=== PATIENT | male | born 1955 | race Caucasian/White ===

== ENCOUNTER 2021-03-23 13:22 | Inpatient (IN) | payer OTHER ==
[2021-03-23] MEDS ORDERED: hydrOXYzine PAMOATE 25 MG CAPSULE (FP) PO PRN (16:52)
[2021-03-23] MEDS ORDERED: MENTHOL/PHENOL 1 EACH UD MM PRN (16:52)
[2021-03-23] MEDS ORDERED: MAGNESIUM CITRATE 300 ML BOTTLE PO PRN (16:52)
[2021-03-23] MEDS ORDERED: IBUPROFEN 400 MG TABLET (FP) PO PRN (16:52)
[2021-03-23] MEDS ORDERED: METHADONE HCL 10 MG TABLET (FOR DETOX USE ONLY) PO ONE (16:52)
[2021-03-23] MEDS ORDERED: ACETAMINOPHEN 325 MG TABLET (FP) PO PRN ×2 (16:52)
[2021-03-23] MEDS ORDERED: ONDANSETRON *ODT* 4 MG TABLET SL PRN (16:52)
[2021-03-23] MEDS ORDERED: BISMUTH SUBSALICYLATE 524 MG/30 ML UD PO PRN (16:52)
[2021-03-23] MEDS ORDERED: MAGNESIUM HYDROX 2400MG/30ML ORAL SUSPENSION 30 ML CUP PO PRN (16:52)
[2021-03-23] MEDS ORDERED: cloNIDine HCL 0.1 MG TABLET PO PRN (16:52)
[2021-03-23] MEDS ORDERED: MAG HYDROX/AL HYDROX/SIMETH 30 ML UNIT-DOSE CUP PO PRN (16:52)
[2021-03-23] MEDS ORDERED: MELATONIN 5 MG TABLETS PO SCH (22:00)
[2021-03-23] MEDS: diazePAM 5 MG TABLET PO SCH (22:04)
[2021-03-23] MEDS: THIAMINE HCL 100 MG TABLET (FP) PO SCH (22:04)
[2021-03-24] MEDS: diazePAM 5 MG TABLET PO SCH ×4 (05:31→22:10)
[2021-03-24] MEDS ORDERED: METHADONE (DETOX) 20 MG, METHADONE (DETOX) 5 MG PO ONE (10:00)
[2021-03-24] MEDS ORDERED: METHADONE HCL 10 MG TABLET (FOR DETOX USE ONLY) ONE (10:01)
[2021-03-24] MEDS ORDERED: METHADONE HCL 5 MG TABLET (FOR DETOX USE ONLY) ONE (10:02)
[2021-03-24] MEDS: METHOCARBAMOL 500 MG TABLET PO PRN (10:10)
[2021-03-24] MEDS: NICOTINE 14 MG/24 HOURS TOPICAL PATCH TD SCH (10:10)
[2021-03-24] MEDS: PRENATAL VITAMINS W/ FOLIC ACID TABLET (FP) PO SCH (10:10)
[2021-03-24] MEDS ORDERED: MELATONIN 5 MG TABLETS PO PRN (10:46)
[2021-03-24] MEDS: PRAZOSIN HCL 1 MG CAPSULE PO SCH (22:10)
[2021-03-24] MEDS: THIAMINE HCL 100 MG TABLET (FP) PO SCH (22:11)
[2021-03-25] MEDS: diazePAM 5 MG TABLET PO PRN ×2 (01:42→10:31)
[2021-03-25] MEDS: diazePAM 5 MG TABLET PO SCH ×3 (06:28→23:23)
[2021-03-25] MEDS ORDERED: METHADONE HCL 10 MG TABLET (FOR DETOX USE ONLY) PO ONE (10:00)
[2021-03-25] MEDS: METHOCARBAMOL 500 MG TABLET PO PRN (10:29)
[2021-03-25] MEDS: NICOTINE 14 MG/24 HOURS TOPICAL PATCH TD SCH (10:30)
[2021-03-25] MEDS: PRENATAL VITAMINS W/ FOLIC ACID TABLET (FP) PO SCH (10:31)
[2021-03-25] MEDS: PRAZOSIN HCL 1 MG CAPSULE PO SCH (23:23)
[2021-03-25] MEDS: THIAMINE HCL 100 MG TABLET (FP) PO SCH (23:23)
[2021-03-26] MEDS ORDERED: diazePAM 5 MG TABLET PO SCH (06:00)
[2021-03-26] MEDS ORDERED: METHADONE HCL 5 MG TABLET (FOR DETOX USE ONLY) ONE (08:53)
[2021-03-26] MEDS ORDERED: METHADONE HCL 10 MG TABLET (FOR DETOX USE ONLY) ONE (08:53)
[2021-03-26 09:53] VITALS: BP 123/75; PULSE 66; TEMP 96.9
[2021-03-26] MEDS ORDERED: METHADONE (DETOX) 10 MG, METHADONE (DETOX) 5 MG PO ONE (10:00)
[2021-03-26] MEDS: PRENATAL VITAMINS W/ FOLIC ACID TABLET (FP) PO SCH (10:17)
[2021-03-26] MEDS: NICOTINE 14 MG/24 HOURS TOPICAL PATCH TD SCH (10:20)
[2021-03-26 12:17] LABS: BASO % 0.7 % (0-2.0); EOS % 2.6 % (0-4.5); HEMATOCRIT 36.3 % (35.4-49); HEMOGLOBIN 12.1 GM/dL (11.7-16.9); LYMPH % 22.7 % (8-40); MCH 28.9 pg (25.7-33.7); MCHC 33.3 g/dl (32.0-35.9); MEAN CELL VOLUME 86.7 fl (80-96); MEAN PLT VOLUME 8.2 fl (7.5-11.1); MONO % 11.9 % (3.8-10.2); NEUT % 62.1 % (42.8-82.8); PLATELET COUNT 282 K/MM3 (134-434); RBC 4.18 M/mm3 (4.00-5.60); RDW 13.4 % (11.9-15.9); WHITE BLOOD COUNT 8.6 K/mm3 (4.0-10.0)
[2021-03-26 12:19] LABS: ALBUMIN 3.7 g/dl (3.4-5.0); CALCIUM 8.8 mg/dL (8.5-10.1)
[2021-03-26 12:20] LABS: BLOOD UREA NITROGEN 14.6 mg/dL (7-18)
[2021-03-26 12:23] LABS: CREATININE 0.9 mg/dL (0.55-1.3)
[2021-03-26 12:24] LABS: TOT PROT 7.6 g/dl (6.4-8.2)
[2021-03-26 14:09] LABS: SARS-CoV-2 NAA Not Detected (Not Detected)
[2021-03-27] MEDS ORDERED: diazePAM 5 MG TABLET PO ONE (06:00)
[2021-03-27] MEDS ORDERED: METHADONE HCL 10 MG TABLET (FOR DETOX USE ONLY) PO ONE (10:00)
[2021-03-28] MEDS ORDERED: METHADONE HCL 5 MG TABLET (FOR DETOX USE ONLY) PO ONE (06:00)
== END 2021-03-26 12:00 | disposition home or self-care (01) | DRG 897 ==
LOC: YASAS 13:22 → Y3N 17:01
PROVIDERS: ADMIT Allergy & Immunology; ATTEND Allergy & Immunology
PROC: HZ2ZZZZ Detoxification Services for Substance Abuse Treatment (ICD-10-PCS; principal; 2021-03-23)
DX: F11.23 Opioid dependence with withdrawal (principal); F13.230 Sedative, hypnotic or anxiolytic dependence with withdrawal, uncomplicated; F17.210 Nicotine dependence, cigarettes, uncomplicated; F43.10 Post-traumatic stress disorder, unspecified; F32.9 Major depressive disorder, single episode, unspecified; I10 Essential (primary) hypertension; M17.0 Bilateral primary osteoarthritis of knee
CPT/HCPCS: 36415; 80053; 85025; 86780; 93005; 93010; C9803; J0735; U0003; U0005

== ENCOUNTER 2021-05-09 11:05 | Inpatient (IN) | payer OTHER ==
[2021-05-09 11:51] VITALS: BMI 29.6
[2021-05-09] MEDS ORDERED: NICOTINE POLACRILEX 2 MG GUM BUC PRN (13:05)
[2021-05-09] MEDS ORDERED: cloNIDine HCL 0.1 MG TABLET PO PRN (13:05)
[2021-05-09] MEDS ORDERED: MAGNESIUM HYDROX 2400MG/30ML ORAL SUSPENSION 30 ML CUP PO PRN (13:05)
[2021-05-09] MEDS ORDERED: MAG HYDROX/AL HYDROX/SIMETH 30 ML UNIT-DOSE CUP PO PRN (13:05)
[2021-05-09] MEDS ORDERED: ONDANSETRON *ODT* 4 MG TABLET SL PRN (13:05)
[2021-05-09] MEDS ORDERED: ACETAMINOPHEN 325 MG TABLET (FP) PO PRN ×2 (13:05)
[2021-05-09] MEDS ORDERED: MAGNESIUM CITRATE 300 ML BOTTLE PO PRN (13:05)
[2021-05-09] MEDS ORDERED: BISMUTH SUBSALICYLATE 524 MG/30 ML PO PRN (13:05)
[2021-05-09] MEDS ORDERED: MENTHOL/PHENOL 1 EACH UD MM PRN (13:05)
[2021-05-09] MEDS ORDERED: LORazepam 0.5 MG TABLET PO PRN (13:11)
[2021-05-09] MEDS ORDERED: diazePAM 5 MG TABLET PO PRN (13:17)
[2021-05-09] MEDS ORDERED: METHADONE HCL 10 MG TABLET (FOR DETOX USE ONLY) PO ONE (14:00)
[2021-05-09] MEDS: hydrOXYzine PAMOATE 25 MG CAPSULE (FP) PO SCH ×3 (14:02→22:15)
[2021-05-09] MEDS: NICOTINE 7 MG/24 HOURS TOPICAL PATCH TD SCH (14:06)
[2021-05-09 17:23] LABS: HEMATOCRIT 38.5 % (35.4-49); HEMOGLOBIN 12.5 GM/dL (11.7-16.9); MCH 27.6 pg (25.7-33.7); MCHC 32.4 g/dl (32.0-35.9); MEAN CELL VOLUME 85.1 fl (80-96); MEAN PLT VOLUME 8.2 fl (7.5-11.1); PLATELET COUNT 287 10^3/uL (134-434); RBC 4.53 M/mm3 (4.00-5.60); RDW 13.6 % (11.9-15.9); WHITE BLOOD COUNT 7.1 K/mm3 (4.0-10.0)
[2021-05-09 17:33] LABS: CALCIUM 9.2 mg/dL (8.5-10.1)
[2021-05-09 17:34] LABS: ALBUMIN 4.5 g/dl (3.4-5.0)
[2021-05-09 17:37] LABS: BLOOD UREA NITROGEN 12.9 mg/dL (7-18)
[2021-05-09 17:39] LABS: TOT PROT 8.2 g/dl (6.4-8.2)
[2021-05-09] MEDS: diazePAM 5 MG TABLET PO SCH ×2 (17:39→22:15)
[2021-05-09 17:42] LABS: BILIRUBIN,TOTAL 0.4 mg/dL (0.2-1)
[2021-05-09 18:12] LABS: HIV INTERPRETATION NEGATIVE (NEGATIVE)
[2021-05-09] MEDS: MELATONIN 5 MG TABLETS PO SCH (22:15)
[2021-05-09] MEDS: THIAMINE HCL 100 MG TABLET (FP) PO SCH (22:15)
[2021-05-10] MEDS: hydrOXYzine PAMOATE 25 MG CAPSULE (FP) PO SCH ×5 (05:16→22:08)
[2021-05-10] MEDS: diazePAM 5 MG TABLET PO SCH ×4 (05:17→22:08)
[2021-05-10] MEDS ORDERED: METHADONE HCL 10 MG TABLET (FOR DETOX USE ONLY) ONE (09:04)
[2021-05-10] MEDS ORDERED: METHADONE HCL 5 MG TABLET (FOR DETOX USE ONLY) ONE (09:04)
[2021-05-10] MEDS ORDERED: METHADONE (DETOX) 20 MG, METHADONE (DETOX) 5 MG PO ONE (10:00)
[2021-05-10] MEDS: ESCITALOPRAM OXALATE 10 MG TABLET PO SCH (10:05)
[2021-05-10] MEDS: PRENATAL VITAMINS W/ FOLIC ACID TABLET (FP) PO SCH (10:08)
[2021-05-10] MEDS: NICOTINE 7 MG/24 HOURS TOPICAL PATCH TD SCH (10:08)
[2021-05-10] MEDS: IBUPROFEN 400 MG TABLET (FP) PO PRN (17:35)
[2021-05-10] MEDS: THIAMINE HCL 100 MG TABLET (FP) PO SCH (22:08)
[2021-05-10] MEDS: MELATONIN 5 MG TABLETS PO SCH (22:08)
[2021-05-11] MEDS: METHOCARBAMOL 500 MG TABLET PO PRN ×2 (05:34→22:12)
[2021-05-11] MEDS: hydrOXYzine PAMOATE 25 MG CAPSULE (FP) PO SCH ×5 (05:34→22:10)
[2021-05-11] MEDS: diazePAM 5 MG TABLET PO SCH ×3 (05:37→22:10)
[2021-05-11] MEDS ORDERED: METHADONE HCL 10 MG TABLET (FOR DETOX USE ONLY) PO ONE (10:00)
[2021-05-11] MEDS: ESCITALOPRAM OXALATE 10 MG TABLET PO SCH (10:05)
[2021-05-11] MEDS: NICOTINE 7 MG/24 HOURS TOPICAL PATCH TD SCH (10:06)
[2021-05-11] MEDS: PRENATAL VITAMINS W/ FOLIC ACID TABLET (FP) PO SCH (10:07)
[2021-05-11] MEDS: THIAMINE HCL 100 MG TABLET (FP) PO SCH (22:10)
[2021-05-11] MEDS: MELATONIN 5 MG TABLETS PO SCH (22:10)
[2021-05-12] MEDS ORDERED: diazePAM 5 MG TABLET PO SCH (06:00)
[2021-05-12] MEDS: hydrOXYzine PAMOATE 25 MG CAPSULE (FP) PO SCH ×2 (06:02→10:05)
[2021-05-12] MEDS ORDERED: METHADONE HCL 5 MG TABLET (FOR DETOX USE ONLY) ONE (08:48)
[2021-05-12] MEDS ORDERED: METHADONE HCL 10 MG TABLET (FOR DETOX USE ONLY) ONE (08:48)
[2021-05-12 09:40] VITALS: BP 128/90; PULSE 64; TEMP 97.1
[2021-05-12] MEDS ORDERED: METHADONE (DETOX) 10 MG, METHADONE (DETOX) 5 MG PO ONE (10:00)
[2021-05-12] MEDS: ESCITALOPRAM OXALATE 10 MG TABLET PO SCH (10:04)
[2021-05-12] MEDS: NICOTINE 7 MG/24 HOURS TOPICAL PATCH TD SCH (10:06)
[2021-05-12] MEDS: PRENATAL VITAMINS W/ FOLIC ACID TABLET (FP) PO SCH (10:07)
[2021-05-12] MEDS: IBUPROFEN 400 MG TABLET (FP) PO PRN (10:07)
[2021-05-13] MEDS ORDERED: diazePAM 5 MG TABLET PO ONE (06:00)
[2021-05-13] MEDS ORDERED: METHADONE HCL 10 MG TABLET (FOR DETOX USE ONLY) PO ONE (10:00)
[2021-05-14] MEDS ORDERED: METHADONE HCL 5 MG TABLET (FOR DETOX USE ONLY) PO ONE (06:00)
== END 2021-05-12 11:21 | disposition left against medical advice (07) | DRG 894 ==
LOC: YASAS 11:05 → Y3N 12:17
PROVIDERS: ADMIT Allergy & Immunology; ATTEND Allergy & Immunology
PROC: HZ2ZZZZ Detoxification Services for Substance Abuse Treatment (ICD-10-PCS; principal; 2021-05-09)
DX: F11.23 Opioid dependence with withdrawal (principal); F13.20 Sedative, hypnotic or anxiolytic dependence, uncomplicated; F10.230 Alcohol dependence with withdrawal, uncomplicated; F17.210 Nicotine dependence, cigarettes, uncomplicated; F19.24 Other psychoactive substance dependence with psychoactive substance-induced mood disorder; F32.9 Major depressive disorder, single episode, unspecified; F41.8 Other specified anxiety disorders; F43.10 Post-traumatic stress disorder, unspecified; E78.5 Hyperlipidemia, unspecified; I10 Essential (primary) hypertension; M54.5 Low back pain; G89.29 Other chronic pain; Z86.19 Personal history of other infectious and parasitic diseases; Z91.14 Patient's other noncompliance with medication regimen
CPT/HCPCS: 36415; 80053; 82947; 85027; 86780; 87389; C9803; Q0162; U0003; U0005